=== PATIENT | male | born 1950 | race Caucasian/White ===

== ENCOUNTER 2017-07-05 07:02 | Inpatient (IN) | payer MEDICARE, OTHER ==
[~2017-07-05] VITALS: Ht 190.5 cm; Wt 109.3 kg
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
[2017-07-05 07:52] LABS: HEMATOCRIT 41.1 % (42.0-54.0); HEMOGLOBIN 13.3 g/dL (13.5-17.5); MCH 30.4 pg (26.0-34.0); MCHC 32.4 g/dL (31.0-37.0); MCV 94.1 fL (80.0-100.0); MEAN PLATELET VOLUME 9.1 fL (7.4-10.4); RBC 4.37 10x6/uL (4.20-6.10); RDW 14.6 % (11.5-14.5); WBC 9.3 10x3/uL (4.8-10.8)
[2017-07-05] MEDS ORDERED: ACIDOPHILUS LAC1 CAP PO (10:16)
[2017-07-05] MEDS ORDERED: CRANBERRY 400 M1 TA1 PO (10:17)
[2017-07-05] MEDS ORDERED: BISAC-EVAC10 MG/SUPP RC (10:17)
[2017-07-05] MEDS ORDERED: CRANBERRY PO (10:24)
[2017-07-05] MEDS ORDERED: FLOMAX0.4 MG PO (10:24)
[2017-07-05] MEDS ORDERED: LASIX80 MG PO (10:25)
[2017-07-05] MEDS ORDERED: LISINOPRIL2.5 MG PO (10:25)
[2017-07-05] MEDS ORDERED: MULTIPLE VITAMI1 TA1 PO (10:25)
[2017-07-05] MEDS ORDERED: MIRALAX17 GM PO (10:25)
[2017-07-05] MEDS ORDERED: NICODERM C1 PATCH .1 TRANSDERM (10:26)
[2017-07-05] MEDS ORDERED: HYDROCODONE-APA1 TAB PO (10:26)
[2017-07-05] MEDS ORDERED: K-DUR20 MEQ PO (10:27)
[2017-07-05] MEDS ORDERED: ZOCOR40 MG PO (10:27)
[2017-07-05] MEDS ORDERED: OXYBUTYNIN CHLOR5 MG PO (10:27)
[2017-07-05] MEDS ORDERED: ASCORBIC ACID500 MG PO (10:28)
[2017-07-05] MEDS ORDERED: XARELTO20 MG PO (10:28)
[2017-07-05] MEDS ORDERED: ANUSOL-HC25 MG RC (10:30)
[2017-07-05] MEDS ORDERED: COLACE100 MG PO (10:30)
[2017-07-05] MEDS ORDERED: IPRAT-ALBUT 0.5-3 ML UPD (10:31)
[2017-07-05] MEDS ORDERED: POTASSIUM CHLO10 ME1 PO (10:36)
[2017-07-05 11:03] VITALS: BP 104/60; BMI 30.1
[2017-07-05 15:22] VITALS: BP 104/60; BMI 30.1
[2017-07-05 15:40] LABS: ALBUMIN 2.8 g/dL (3.4-5.0); ALKALINE PHOSPHATASE 74 U/L (46-116); ALT (SGPT) 17 U/L (10-68); BILIRUBIN - TOTAL 0.19 mg/dL (0.2-1.3); CALC OSMOLALITY 280 mosm/kg (275-300); CALCIUM 9.1 mg/dL (8.5-10.1); CARBON DIOXIDE 28.5 mmol/L (21.0-32.0); CHLORIDE - SERUM 103 mmol/L (98-107); GLUCOSE 106 mg/dL (74-106); POTASSIUM - SERUM 4.3 mmol/L (3.5-5.1); PRO BNP 349 pg/mL (0-125); PROTEIN - SERUM 7.4 g/dL (6.4-8.2); SODIUM 139 mmol/L (136-145); UREA NITROGEN 21 mg/dL (7-18); eGFR NON AFRICAN AMERICAN 79 mL/min (90-120)
[2017-07-05 16:35] VITALS: BP 95/44
[2017-07-05 20:12] VITALS: BP 103/51
[2017-07-06 02:32] VITALS: BP 94/43
[2017-07-06 06:23] VITALS: BP 86/43
[2017-07-06 06:43] LABS: BASOPHILS 0.2 % (0-2); EOSINOPHILS 2.2 % (0-7); HEMATOCRIT 38.7 % (42.0-54.0); HEMOGLOBIN 12.3 g/dL (13.5-17.5); IMMATURE GRANULOCYTES 0.5 % (0-5); LYMPHOCYTES 34.3 % (15-50); MCH 29.9 pg (26.0-34.0); MCHC 31.8 g/dL (31.0-37.0); MCV 93.9 fL (80.0-100.0); MEAN PLATELET VOLUME 9.4 fL (7.4-10.4); MONOCYTES 7.2 % (2-11); NEUTROPHILS 55.6 % (40-80); PLATELET COUNT 155 10x3/uL (130-400); RBC 4.12 10x6/uL (4.20-6.10); RDW 14.6 % (11.5-14.5); WBC 10.9 10x3/uL (4.8-10.8)
[2017-07-06 07:02] LABS: ALBUMIN 2.4 g/dL (3.4-5.0); ALKALINE PHOSPHATASE 60 U/L (46-116); ALT (SGPT) 18 U/L (10-68); CALC OSMOLALITY 283 mosm/kg (275-300); CALCIUM 7.8 mg/dL (8.5-10.1); CARBON DIOXIDE 29.7 mmol/L (21.0-32.0); CHLORIDE - SERUM 104 mmol/L (98-107); CREATININE - SERUM 0.9 mg/dL (0.6-1.3); GLUCOSE 91 mg/dL (74-106); POTASSIUM - SERUM 3.8 mmol/L (3.5-5.1); PROTEIN - SERUM 6.7 g/dL (6.4-8.2); SODIUM 141 mmol/L (136-145); UREA NITROGEN 20 mg/dL (7-18); eGFR NON AFRICAN AMERICAN 89 mL/min (90-120)
[2017-07-06 07:39] VITALS: BP 114/49
[2017-07-06 11:01] VITALS: Ht 190.5 cm; Wt 109.3 kg
[2017-07-06 11:56] VITALS: BP 122/47
[2017-07-06 15:32] VITALS: BP 98/50
[2017-07-06 20:00] VITALS: BP 138/70
[2017-07-07] VITALS: BP 126/70
[2017-07-07 05:05] LABS: BASOPHILS 0.2 % (0-2); EOSINOPHILS 3.8 % (0-7); HEMATOCRIT 37.6 % (42.0-54.0); HEMOGLOBIN 11.8 g/dL (13.5-17.5); IMMATURE GRANULOCYTES 0.7 % (0-5); LYMPHOCYTES 33.8 % (15-50); MCH 29.6 pg (26.0-34.0); MCHC 31.4 g/dL (31.0-37.0); MCV 94.5 fL (80.0-100.0); MEAN PLATELET VOLUME 9.3 fL (7.4-10.4); NEUTROPHILS 54.5 % (40-80); PLATELET COUNT 165 10x3/uL (130-400); RBC 3.98 10x6/uL (4.20-6.10); RDW 14.7 % (11.5-14.5); WBC 10.2 10x3/uL (4.8-10.8)
[2017-07-07 05:19] LABS: ALBUMIN 2.6 g/dL (3.4-5.0); ALKALINE PHOSPHATASE 63 U/L (46-116); ALT (SGPT) 15 U/L (10-68); BILIRUBIN - TOTAL 0.21 mg/dL (0.2-1.3); CALC OSMOLALITY 281 mosm/kg (275-300); CALCIUM 8.4 mg/dL (8.5-10.1); CARBON DIOXIDE 31.3 mmol/L (21.0-32.0); CHLORIDE - SERUM 105 mmol/L (98-107); GLUCOSE 88 mg/dL (74-106); POTASSIUM - SERUM 3.8 mmol/L (3.5-5.1); PROTEIN - SERUM 6.7 g/dL (6.4-8.2); SODIUM 141 mmol/L (136-145); UREA NITROGEN 19 mg/dL (7-18); eGFR NON AFRICAN AMERICAN 79 mL/min (90-120)
[2017-07-07 08:26] VITALS: BP 100/49
[2017-07-07 11:13] VITALS: BP 103/48
[2017-07-07 20:54] VITALS: BP 97/38
[2017-07-08] VITALS (7 sets, daily range): BP systolic 91–115; BP diastolic 30–51
[2017-07-08 05:44] LABS: BASOPHILS 0.2 % (0-2); EOSINOPHILS 4.1 % (0-7); HEMATOCRIT 37.6 % (42.0-54.0); HEMOGLOBIN 11.5 g/dL (13.5-17.5); IMMATURE GRANULOCYTES 0.6 % (0-5); LYMPHOCYTES 32.3 % (15-50); MCHC 30.6 g/dL (31.0-37.0); MCV 94.9 fL (80.0-100.0); MEAN PLATELET VOLUME 9.1 fL (7.4-10.4); MONOCYTES 7.5 % (2-11); NEUTROPHILS 55.3 % (40-80); PLATELET COUNT 158 10x3/uL (130-400); RBC 3.96 10x6/uL (4.20-6.10); RDW 14.8 % (11.5-14.5); WBC 9.4 10x3/uL (4.8-10.8)
[2017-07-08 06:16] LABS: ALBUMIN 2.5 g/dL (3.4-5.0); ALKALINE PHOSPHATASE 58 U/L (46-116); ALT (SGPT) 17 U/L (10-68); BILIRUBIN - TOTAL 0.31 mg/dL (0.2-1.3); CALC OSMOLALITY 285 mosm/kg (275-300); CALCIUM 8.7 mg/dL (8.5-10.1); CARBON DIOXIDE 28.2 mmol/L (21.0-32.0); CHLORIDE - SERUM 107 mmol/L (98-107); CREATININE - SERUM 0.8 mg/dL (0.6-1.3); GLUCOSE 119 mg/dL (74-106); POTASSIUM - SERUM 3.7 mmol/L (3.5-5.1); PROTEIN - SERUM 6.6 g/dL (6.4-8.2); SODIUM 142 mmol/L (136-145); UREA NITROGEN 17 mg/dL (7-18); eGFR NON AFRICAN AMERICAN > 90 mL/min (90-120)
[2017-07-09 05:34] LABS: BASOPHILS 0.2 % (0-2); EOSINOPHILS 4.9 % (0-7); HEMATOCRIT 37.6 % (42.0-54.0); HEMOGLOBIN 11.9 g/dL (13.5-17.5); IMMATURE GRANULOCYTES 0.7 % (0-5); LYMPHOCYTES 36.7 % (15-50); MCH 29.8 pg (26.0-34.0); MCHC 31.6 g/dL (31.0-37.0); MCV 94.2 fL (80.0-100.0); MEAN PLATELET VOLUME 9.2 fL (7.4-10.4); MONOCYTES 5.6 % (2-11); NEUTROPHILS 51.9 % (40-80); PLATELET COUNT 144 10x3/uL (130-400); RBC 3.99 10x6/uL (4.20-6.10); RDW 14.7 % (11.5-14.5)
[2017-07-09 05:52] LABS: ALBUMIN 2.5 g/dL (3.4-5.0); ALKALINE PHOSPHATASE 54 U/L (46-116); ALT (SGPT) 19 U/L (10-68); CALC OSMOLALITY 280 mosm/kg (275-300); CALCIUM 8.1 mg/dL (8.5-10.1); CARBON DIOXIDE 27.1 mmol/L (21.0-32.0); CHLORIDE - SERUM 108 mmol/L (98-107); CREATININE - SERUM 0.7 mg/dL (0.6-1.3); GLUCOSE 85 mg/dL (74-106); POTASSIUM - SERUM 4.3 mmol/L (3.5-5.1); PROTEIN - SERUM 6.4 g/dL (6.4-8.2); SODIUM 141 mmol/L (136-145); UREA NITROGEN 16 mg/dL (7-18); eGFR NON AFRICAN AMERICAN > 90 mL/min (90-120)
[2017-07-09 05:55] VITALS: BP 105/50
[2017-07-09 08:38] VITALS: BP 103/56
[2017-07-09 11:24] VITALS: BP 101/37
[2017-07-09 16:05] VITALS: BP 116/96
[2017-07-09 20:15] VITALS: BP 108/64
[2017-07-10 00:30] VITALS: BP 123/48
[2017-07-10 05:19] LABS: BASOPHILS 0.2 % (0-2); EOSINOPHILS 4.3 % (0-7); HEMATOCRIT 36.7 % (42.0-54.0); HEMOGLOBIN 11.4 g/dL (13.5-17.5); IMMATURE GRANULOCYTES 0.6 % (0-5); LYMPHOCYTES 34.4 % (15-50); MCH 29.6 pg (26.0-34.0); MCHC 31.1 g/dL (31.0-37.0); MCV 95.3 fL (80.0-100.0); MEAN PLATELET VOLUME 9.2 fL (7.4-10.4); MONOCYTES 4.9 % (2-11); NEUTROPHILS 55.6 % (40-80); PLATELET COUNT 155 10x3/uL (130-400); RBC 3.85 10x6/uL (4.20-6.10); RDW 14.8 % (11.5-14.5); WBC 10.5 10x3/uL (4.8-10.8)
[2017-07-10 05:53] LABS: ALBUMIN 2.4 g/dL (3.4-5.0); ALKALINE PHOSPHATASE 54 U/L (46-116); ALT (SGPT) 17 U/L (10-68); CALC OSMOLALITY 278 mosm/kg (275-300); CALCIUM 7.8 mg/dL (8.5-10.1); CHLORIDE - SERUM 107 mmol/L (98-107); CREATININE - SERUM 0.8 mg/dL (0.6-1.3); GLUCOSE 89 mg/dL (74-106); POTASSIUM - SERUM 4.4 mmol/L (3.5-5.1); PROTEIN - SERUM 6.2 g/dL (6.4-8.2); SODIUM 140 mmol/L (136-145); UREA NITROGEN 14 mg/dL (7-18); eGFR NON AFRICAN AMERICAN > 90 mL/min (90-120)
[2017-07-10 06:24] VITALS: BP 87/45
[2017-07-10 09:29] VITALS: BP 134/70
[2017-07-10 12:23] VITALS: BP 118/52
[2017-07-10 15:56] VITALS: BP 102/46
[2017-07-10 19:00] VITALS: BP 134/54; BP 192/75
[2017-07-11] VITALS: BP 108/44
[2017-07-11 04:00] VITALS: BP 107/45
[2017-07-11 05:44] LABS: BASOPHILS 0.2 % (0-2); EOSINOPHILS 3.7 % (0-7); HEMATOCRIT 39.4 % (42.0-54.0); HEMOGLOBIN 12.6 g/dL (13.5-17.5); IMMATURE GRANULOCYTES 0.6 % (0-5); LYMPHOCYTES 32.5 % (15-50); MCH 30.1 pg (26.0-34.0); MCV 94.3 fL (80.0-100.0); MEAN PLATELET VOLUME 9.2 fL (7.4-10.4); MONOCYTES 4.8 % (2-11); NEUTROPHILS 58.2 % (40-80); PLATELET COUNT 166 10x3/uL (130-400); RBC 4.18 10x6/uL (4.20-6.10); RDW 14.8 % (11.5-14.5); WBC 11.8 10x3/uL (4.8-10.8)
[2017-07-11 06:15] LABS: CALC OSMOLALITY 279 mosm/kg (275-300); CALCIUM 8.5 mg/dL (8.5-10.1); CARBON DIOXIDE 28.7 mmol/L (21.0-32.0); CHLORIDE - SERUM 105 mmol/L (98-107); GLUCOSE 94 mg/dL (74-106); SODIUM 140 mmol/L (136-145); UREA NITROGEN 14 mg/dL (7-18); eGFR NON AFRICAN AMERICAN 79 mL/min (90-120)
[2017-07-11 08:06] VITALS: BP 110/43
[2017-07-11 13:03] VITALS: BP 103/45
[2017-07-11 16:40] VITALS: BP 100/42
[2017-07-11 21:04] VITALS: BP 109/42
[2017-07-12 01:08] VITALS: BP 122/58
[2017-07-12 05:32] VITALS: BP 103/50
[2017-07-12 06:42] LABS: BASOPHILS 0.2 % (0-2); EOSINOPHILS 3.6 % (0-7); HEMATOCRIT 38.6 % (42.0-54.0); HEMOGLOBIN 12.2 g/dL (13.5-17.5); IMMATURE GRANULOCYTES 0.7 % (0-5); LYMPHOCYTES 35.1 % (15-50); MCHC 31.6 g/dL (31.0-37.0); MCV 94.8 fL (80.0-100.0); MEAN PLATELET VOLUME 9.4 fL (7.4-10.4); MONOCYTES 4.7 % (2-11); NEUTROPHILS 55.7 % (40-80); PLATELET COUNT 172 10x3/uL (130-400); RBC 4.07 10x6/uL (4.20-6.10); RDW 15.1 % (11.5-14.5); WBC 11.9 10x3/uL (4.8-10.8)
[2017-07-12 06:57] LABS: CALC OSMOLALITY 281 mosm/kg (275-300); CALCIUM 8.4 mg/dL (8.5-10.1); CHLORIDE - SERUM 106 mmol/L (98-107); CREATININE - SERUM 0.9 mg/dL (0.6-1.3); GLUCOSE 83 mg/dL (74-106); POTASSIUM - SERUM 4.2 mmol/L (3.5-5.1); SODIUM 141 mmol/L (136-145); UREA NITROGEN 18 mg/dL (7-18); eGFR NON AFRICAN AMERICAN 89 mL/min (90-120)
[2017-07-12 07:55] VITALS: BP 99/40
[2017-07-12 15:12] VITALS: BP 99/51
[2017-07-12 20:28] VITALS: BP 100/43
[2017-07-13 01:41] VITALS: BP 104/42
[2017-07-13 05:16] VITALS: BP 92/53
[2017-07-13 06:21] LABS: BASOPHILS 0.1 % (0-2); EOSINOPHILS 2.9 % (0-7); HEMOGLOBIN 11.2 g/dL (13.5-17.5); IMMATURE GRANULOCYTES 0.4 % (0-5); LYMPHOCYTES 28.1 % (15-50); MCH 29.6 pg (26.0-34.0); MCHC 31.1 g/dL (31.0-37.0); MCV 95.2 fL (80.0-100.0); MEAN PLATELET VOLUME 9.4 fL (7.4-10.4); MONOCYTES 5.4 % (2-11); NEUTROPHILS 63.1 % (40-80); PLATELET COUNT 168 10x3/uL (130-400); RBC 3.78 10x6/uL (4.20-6.10); RDW 15.3 % (11.5-14.5); WBC 11.2 10x3/uL (4.8-10.8)
[2017-07-13 06:43] LABS: CALC OSMOLALITY 283 mosm/kg (275-300); CHLORIDE - SERUM 105 mmol/L (98-107); CREATININE - SERUM 0.9 mg/dL (0.6-1.3); GLUCOSE 81 mg/dL (74-106); POTASSIUM - SERUM 3.9 mmol/L (3.5-5.1); SODIUM 142 mmol/L (136-145); UREA NITROGEN 18 mg/dL (7-18); eGFR NON AFRICAN AMERICAN 89 mL/min (90-120)
[2017-07-13 09:50] VITALS: BP 78/60
[2017-07-13 12:06] VITALS: BP 95/51
[2017-07-13 17:27] VITALS: BP 179/68
[2017-07-13 19:57] LABS: BASOPHILS 0.1 % (0-2); EOSINOPHILS 3.1 % (0-7); HEMATOCRIT 37.3 % (42.0-54.0); HEMOGLOBIN 11.9 g/dL (13.5-17.5); IMMATURE GRANULOCYTES 0.3 % (0-5); LYMPHOCYTES 25.5 % (15-50); MCH 30.2 pg (26.0-34.0); MCHC 31.9 g/dL (31.0-37.0); MCV 94.7 fL (80.0-100.0); MEAN PLATELET VOLUME 9.5 fL (7.4-10.4); MONOCYTES 6.4 % (2-11); NEUTROPHILS 64.6 % (40-80); PLATELET COUNT 158 10x3/uL (130-400); RBC 3.94 10x6/uL (4.20-6.10); RDW 15.1 % (11.5-14.5); WBC 11.4 10x3/uL (4.8-10.8)
[2017-07-13 20:14] LABS: APTT 35.1 SECONDS (22.8-39.4); INR 1.8 (0.85-1.17); PROTIME 20.4 SECONDS (11.6-15.0)
[2017-07-13 21:06] VITALS: BP 90/57
[2017-07-14 00:58] VITALS: BP 105/69
[2017-07-14 04:00] VITALS: BP 89/41
[2017-07-14 06:57] LABS: BASOPHILS 0.2 % (0-2); EOSINOPHILS 3.3 % (0-7); HEMATOCRIT 35.9 % (42.0-54.0); HEMOGLOBIN 11.4 g/dL (13.5-17.5); IMMATURE GRANULOCYTES 0.3 % (0-5); LYMPHOCYTES 30.7 % (15-50); MCH 30.1 pg (26.0-34.0); MCHC 31.8 g/dL (31.0-37.0); MCV 94.7 fL (80.0-100.0); MEAN PLATELET VOLUME 9.3 fL (7.4-10.4); MONOCYTES 5.4 % (2-11); NEUTROPHILS 60.1 % (40-80); PLATELET COUNT 164 10x3/uL (130-400); RBC 3.79 10x6/uL (4.20-6.10); RDW 15.3 % (11.5-14.5); WBC 11.5 10x3/uL (4.8-10.8)
[2017-07-14 07:12] LABS: CALC OSMOLALITY 281 mosm/kg (275-300); CALCIUM 8.1 mg/dL (8.5-10.1); CARBON DIOXIDE 26.4 mmol/L (21.0-32.0); CHLORIDE - SERUM 107 mmol/L (98-107); CREATININE - SERUM 0.8 mg/dL (0.6-1.3); GLUCOSE 80 mg/dL (74-106); POTASSIUM - SERUM 3.9 mmol/L (3.5-5.1); SODIUM 141 mmol/L (136-145); UREA NITROGEN 19 mg/dL (7-18); eGFR NON AFRICAN AMERICAN > 90 mL/min (90-120)
[2017-07-14 08:48] VITALS: BP 111/66
[2017-07-14 11:38] VITALS: BP 109/51
[2017-07-14 15:09] VITALS: BP 104/58
[2017-07-14 19:00] VITALS: BP 106/46
[2017-07-15 04:00] VITALS: BP 104/69
[2017-07-15 04:09] LABS: BASOPHILS 0.2 % (0-2); EOSINOPHILS 3.5 % (0-7); HEMATOCRIT 36.2 % (42.0-54.0); HEMOGLOBIN 11.3 g/dL (13.5-17.5); IMMATURE GRANULOCYTES 0.2 % (0-5); MCH 29.6 pg (26.0-34.0); MCHC 31.2 g/dL (31.0-37.0); MCV 94.8 fL (80.0-100.0); MONOCYTES 5.8 % (2-11); NEUTROPHILS 61.3 % (40-80); PLATELET COUNT 154 10x3/uL (130-400); RBC 3.82 10x6/uL (4.20-6.10); RDW 15.4 % (11.5-14.5); WBC 10.8 10x3/uL (4.8-10.8)
[2017-07-15 04:29] LABS: CALC OSMOLALITY 280 mosm/kg (275-300); CARBON DIOXIDE 29.4 mmol/L (21.0-32.0); CHLORIDE - SERUM 106 mmol/L (98-107); CREATININE - SERUM 0.7 mg/dL (0.6-1.3); GLUCOSE 82 mg/dL (74-106); POTASSIUM - SERUM 4.2 mmol/L (3.5-5.1); SODIUM 141 mmol/L (136-145); UREA NITROGEN 16 mg/dL (7-18); eGFR NON AFRICAN AMERICAN > 90 mL/min (90-120)
[2017-07-15 08:10] VITALS: BP 103/52
[2017-07-15 12:04] VITALS: BP 122/56
[2017-07-15 15:32] VITALS: BP 110/50
[2017-07-15 20:30] VITALS: BP 123/53
[2017-07-16] VITALS (7 sets, daily range): BP systolic 87–130; BP diastolic 43–85
[2017-07-17 02:40] VITALS: BP 109/44
[2017-07-17 06:44] VITALS: BP 113/55
[2017-07-17 10:17] VITALS: BP 93/69
[2017-07-17 12:33] VITALS: BP 106/63
[2017-07-17 18:36] VITALS: BP 107/60
== END 2017-07-17 19:32 | DRG 193 ==
LOC: D.OPS 07:02 → D.PAN 09:40 → D.M2 09:41 → D.SDCHOLD 09:41 → D.PAN 10:00 → D.OPS 10:15 → D.M2 15:00
PROVIDERS: Anesthesiology; Family Medicine; Internal Medicine Nephrology; Internal Medicine Pulmonary Disease; Urology
PROC: 0T9B80Z Drainage of Bladder with Drainage Device, Via Natural or Artificial Opening Endoscopic (ICD-10-PCS; principal; 2017-07-12 10:15)
DX: J18.9 Pneumonia, unspecified organism (principal); G82.50 Quadriplegia, unspecified; J44.1 Chronic obstructive pulmonary disease with (acute) exacerbation; J96.11 Chronic respiratory failure with hypoxia; J98.11 Atelectasis; N13.8 Other obstructive and reflux uropathy; J44.0 Chronic obstructive pulmonary disease with (acute) lower respiratory infection; N31.9 Neuromuscular dysfunction of bladder, unspecified; K21.9 Gastro-esophageal reflux disease without esophagitis; K59.00 Constipation, unspecified; F41.8 Other specified anxiety disorders; J98.6 Disorders of diaphragm; N40.1 Benign prostatic hyperplasia with lower urinary tract symptoms; N39.498 Other specified urinary incontinence; Z86.73 Personal history of transient ischemic attack (TIA), and cerebral infarction without residual deficits; Z99.81 Dependence on supplemental oxygen; Z86.711 Personal history of pulmonary embolism; Z87.891 Personal history of nicotine dependence; D64.9 Anemia, unspecified